=== PATIENT | female | born 1965 | race Caucasian/White ===

== ENCOUNTER 2017-03-30 07:07 | Day surgery (SDC) | payer OTHER ==
[~2017-03-30] VITALS: Ht 170.2 cm; Wt 75.3 kg
[~2017-03-30 07:07] MED LIST: COENZYME Q-1030 MG; Cleocin HCl300 MG PO; ERGO400; Fish Oil 1,0001 EAC3; L-Lysine500 M1; L-Lysine500 M1 PO; MAGNESIUM; OLIVE LEAF EXT250 MG; PROBIOTIC1 EAC1 PO
--- NOTE | 2017-03-30 07:34 | NUR ---
Ambulatory in Day Surgery History, Chart, Medications and Allergies reviewed before start of procedure.Patient confirms NPO status and agrees with scheduled surgery. Patient States Post-Procedure ride home has been arranged.
--- NOTE | 2017-03-30 08:35 | NUR ---
PT FROM ENDO ROOM 1. PT AROUSING. VSS. WARM BLANKETS PLACED.
--- NOTE | 2017-03-30 08:37 | NUR ---
03/30/17 0836 Shi Palomo History, Chart, Medications and Allergies reviewed before start of procedure.PATIENT DETERMINED TO BE ASA APPROPRIATE FOR PROPOFOL SEDATION PRIOR TO START OF PROCEDURE BY .MONITOR INTACT WITH CONTINUOUS PULSE OXIMETRY AND INTERMITTENT BP.3-LEAD EKG REVIEWED WITH PHYSICIAN PRIOR TO START OF PROCEDURE.O2 VIA N/C INTACT THROUGHOUT SEDATION/PROCEDURE.
--- NOTE | 2017-03-30 08:58 | NUR ---
Discharge instructions reviewed with patient. Patient verbalizes understanding. Copy given to patient to take home. Patient States Post-Procedure ride home has been arranged. Discharged via wheelchair to private car for ride home.
[2017-04-10] MEDS ORDERED: Vibramycin100 MG PO (11:54)
[2017-04-10] MEDS ORDERED: FLUC150A PO (11:54)
== END 2017-03-30 22:46 | disposition home or self-care (01) ==
LOC: ORSCMMR 07:07
PROVIDERS: Internal Medicine Gastroenterology
PROC: 0DBN8ZX Excision of Sigmoid Colon, Via Natural or Artificial Opening Endoscopic, Diagnostic (ICD-10-PCS; principal; 2017-03-30 08:00)
PROC: 0DBM8ZX Excision of Descending Colon, Via Natural or Artificial Opening Endoscopic, Diagnostic (ICD-10-PCS; principal; 2017-03-30 08:00)
DX: Z12.11 Encounter for screening for malignant neoplasm of colon (principal); K63.5 Polyp of colon; Z80.0 Family history of malignant neoplasm of digestive organs; F17.210 Nicotine dependence, cigarettes, uncomplicated
CPT/HCPCS: 88305; J0461; J1200; J7120